=== PATIENT | female | born 1970 | race Caucasian/White ===

== ENCOUNTER 2018-08-03 06:48 | Emergency (ER) | payer MEDICAID ==
[2018-08-03 06:57] VITALS: BMI 32.9
[2018-08-03 07:03] VITALS: BP 143/85
--- NOTE | 2018-08-03 07:19 | ED PDOC ---
Arrival/HPI - General Chief Complaint: Cough, Cold, Congestion Time Seen by Provider: 08/03/18 07:17 Historian: Patient - History of Present Illness Narrative History of Present Illness (Text): 08/03/18 07:39 A 48 year old female, whose past medical history includes TIA, pneumonia, and hypertension, presents to the emergency department complaining of chest tightness and dry cough for 2 days. Patient reports today symptoms have worsened. She states having not taken anything for the cough. Patient mentions she works at a [employer], where she may have had possible sick contacts. Patient notes also experiencing chills and vomiting (only after coughing a lot), however denies any nausea, diarrhea, sputum, fever, or any other complaints at this time. Denies any recent travel. Denies any history of smoking/asthma/COPD. Currently only taking allergy pills, however denies to having seasonal allergies. Time/Duration: < week (2 days, worse today) Past Medical History - Provider Review Nursing Documentation Reviewed: Yes - Tetanus Immunization Tetanus Immunization: Up to Date - Past Medical History Past Medical History: No Previous - Cardiac Hx Cardiac Disorders: Yes Hx Hypertension: Yes - Pulmonary Hx Respiratory Disorders: No - Neurological Hx Neurological Disorder: No - HEENT Hx HEENT Disorder: No - Renal Hx Renal Disorder: No - Endocrine/Metabolic Hx Endocrine Disorders: No - Hematological/Oncological Hx Blood Disorders: No - Integumentary Hx Dermatological Disorder: No - Musculoskeletal/Rheumatological Hx Falls: No - Gastrointestinal Hx Gastrointestinal Disorders: Yes (obese) - Genitourinary/Gynecological Hx Genitourinary Disorders: No - Psychiatric Hx Psychophysiologic Disorder: Yes Hx Anxiety: Yes Hx Depression: Yes Hx Substance Use: No - Past Surgical History Past Surgical History: No Previous - Anesthesia Hx Anesthesia: No - Suicidal Assessment Feels Threatened In Home Enviroment: No Family/Social History - Physician Review Nursing Documentation Reviewed: Yes Family/Social History: No Known Family HX Smoking Status: Never Smoked Hx Alcohol Use: No Hx Substance Use: No Hx Substance Use Treatment: No Allergies/Home Meds Allergies/Adverse Reactions: Allergies No Known Allergies Allergy (Verified 08/03/18 06:57) Home Medications: Home Meds Medication Instructions Recorded Confirmed Losartan [Cozaar] 125 mg PO DAILY 08/03/18 08/03/18 Review of Systems - Physician Review All systems were reviewed & negative as marked: Yes - Review of Systems Constitutional: Night Sweats. absent: Fevers Respiratory: Cough. absent: Sputum Cardiovascular: Chest Pain (chest tightness) Gastrointestinal: Vomiting (only after coughing a lot). absent: Diarrhea, Nausea Physical Exam - Physical Exam Narrative Physical Exam (Text): Gen: NAD, cooperative, well appearing, non-toxic. Head: NCAT. HEENT: EYES: PERRL, EOMI, conjunctiva clear, MOUTH: moist MM, posterior pharynx without erythema or exudate, uvula midline. CV: (+) S1S2, diffuse rhonchi, no rales, diffused breath sounds, no M/G/R LUNGS: CTA B/L, No W/R/R, good air movement Abd: Soft, NTTP, no guarding, rebound or rigidity. Neuro: AAO x 3, GCS 15, CN 2-12 intact, motor and sensory grossly intact, 5/5 muscle strength B/L UE's and LE's. ext: no cyanosis or edema Vital Signs Reviewed: Yes Vital Signs Temp Pulse Resp BP Pulse Ox 08/03/18 06:58 84 F L 84 19 143/85 95 Temperature: Afebrile Blood Pressure: Normal Pulse: Regular Respiratory Rate: Normal Appearance: Positive for: Well-Appearing, Non-Toxic, Comfortable Pain Distress: None Mental Status: Positive for: Alert and Oriented X 3 Medical Decision Making ED Course and Treatment: 08/03/18 07:43 Impression: 48 year old female with chest tightness and dry cough. Physical exam shows diffuse rhonchi and diffuse breath sounds. Plan: -- EKG -- Chest X-ray -- Duoneb -- Reassess and disposition Progress Notes: 08/03/2018 08:53 Chest X-ray IMPRESSION: Mild atelectasis/infiltrate within the medial right lower lobe. Hypoinflation. Dictator: Christiana Lindo MD 08/03/18 08:57 Patient reassessed, feels better. Results of cxr d/w patient. Plan Rx for abx and albuterol MDI, f/u w/pcp. Patient agreeable w/POC. Re-evaluation Time: 08:45 Reassessment Condition: Re-examined, Improved - EKG Interpretation EKG Interpretation (Text): EKG: Ordered, reviewed, and independently interpreted the EKG. Rate : 77 BPM Rhythm : NSR Interpretation : No ST-segment elevations or depressions, no T-wave inversions, normal intervals. Comparison : No previous EKG for comparison. - Scribe Statement The provider has reviewed the documentation as recorded by the Elisa Cartagena Provider Scribe Attestation: All medical record entries made by the Scribe were at my direction and personally dictated by me. I have reviewed the chart and agree that the record accurately reflects my personal performance of the history, physical exam, medical decision making, and the department course for this patient. I have also personally directed, reviewed, and agree with the discharge instructions and disposition. Disposition/Present on Arrival - Present on Arrival Any Indicators Present on Arrival: No History of DVT/PE: No History of Uncontrolled Diabetes: No Urinary Catheter: No History of Decub. Ulcer: No History Surgical Site Infection Following: None - Disposition Have Diagnosis and Disposition been Completed?: Yes Diagnosis: Pneumonia Disposition: HOME/ ROUTINE Disposition Time: 08:58 Patient Plan: Discharge Condition: IMPROVED Discharge Instructions (ExitCare): Pneumonia, Adult (DC) Additional Instructions: JORDAN PATEL, thank you for letting us take care of you today. Your provider was Laureen Loza MD and you were treated for DRY COUGH CHEST TIGHTNESS. The emergency medical care you received today was directed at your acute symptoms. If you were prescribed any medication, please fill it and take as directed. It may take several days for your symptoms to resolve. Return to the Emergency Department if your symptoms worsen, do not improve, or if you have any other problems. Please contact your doctor for a follow up appointment in 2 days. Bring any paperwork you were given at discharge with you along with any medications you are taking to your follow up visit. Our treatment cannot replace ongoing medical care by a primary care provider outside of the emergency department. Thank you for allowing the [facility] team to be part of your care today. Prescriptions: Albuterol HFA [Ventolin HFA 90 mcg/actuation (8 g)] 2 puff IH [id number] PRN #1 dev PRN Reason: Wheezing Azithromycin 250 mg PO DAILY #6 tab Forms: [employer] ([place])
[2018-08-03] MEDS ORDERED: Albuterol-Ipratrop 3 mg / 0.5 (3 ml) UD IH STA (07:36)
[2018-08-03 08:36] VITALS: TEMP 98.2
--- NOTE | 2018-08-03 08:53 | RAD ---
HISTORY: cough COMPARISON: Chest x-ray performed 08/12/15 TECHNIQUE: Chest PA and lateral, 2 views FINDINGS: LUNGS: Examination limited by habitus and hypoinflation. Atelectasis/infiltrate within the medial right lower lobe. Please note that chest x-ray has limited sensitivity for the detection of pulmonary masses. PLEURA: No significant pleural effusion identified. No definite pneumothorax . CARDIOVASCULAR: Heart size appears top normal. Atherosclerotic calcifications of the aorta. OSSEOUS STRUCTURES: Degenerative changes. VISUALIZED UPPER ABDOMEN: Unremarkable. OTHER FINDINGS: None. IMPRESSION: Mild atelectasis/infiltrate within the medial right lower lobe. Hypoinflation.
[2018-08-03 09:10] VITALS: PULSE 79; RESP 17; O2SAT 96
--- NOTE | 2018-08-03 20:59 | CARD ---
APPROVED REPORT Date of service: 08/03/2018 EKG Measurement Heart [id number] <Conclusion> Normal sinus rhythm Normal ECG
== END 2018-08-03 09:09 | disposition home or self-care (01) ==
LOC: ED 06:48
DX: J18.9 Pneumonia, unspecified organism (principal); I10 Essential (primary) hypertension; Z86.73 Personal history of transient ischemic attack (TIA), and cerebral infarction without residual deficits